=== PATIENT | male | born 1955 | race Caucasian/White ===

== ENCOUNTER 2024-06-13 08:50 | Outpatient (CLI) | payer MEDICARE, MEDICAID, SELFPAY ==
--- NOTE | 2024-06-13 08:54 | CT_ITS ---
WS: [id number] CT NECK WITH CONTRAST HISTORY: NEOPLASM OF UNCERTAIN BEHAVIOR OF SITES OF THE ORAL CAVITY TECHNIQUE: Contiguous 2 mm axial images are performed through the neck with intravenous contrast. Sag ittal and coronal reformats are also submitted. All CT scans at [facility] use at least one o f these dose optimization techniques: automated exposure control; mA and/or kV adjustment per patient size (includes targeted exams where dose is matched to clinical indication); or iterative reconstruc tion. CONTRAST: CONTRAST: Omnipaque 350; 100 mL IV. DLP: 195.34 mGy.cm COMPARISON: None available. Enhancing RIGHT [place] tonsil with enhancing mass and a few foci of air centrally. Mass is centered in the RIGHT [place] tonsil but extends posteriorly into the tongue base. [place] tonsils mass evette sures 2.6 x 2.9 cm and extends over a length of 3.6 cm. Very minimal encroachment into the posterior oral cavity. There is very slight enhancement also within the LEFT [place] tonsil but not masslike. This area can be evaluated by direct visualization. RIGHT cervical chain lymphadenopathy. Multiple abnormal lymph nodes at various stations. Necrotic lym ph node at level 2A measures 3.0 x 1.5 cm. There is an additional level 2B lymph node with loss of th e normal fatty hilum measuring 2.2 cm. Level 5A lymph node is just posterior to the jugular vein on t he RIGHT measuring 1.7 x 1.8 cm. No adenopathy on the lung the LEFT cervical chain. Lung apices are clear. Mild atherosclerosis aortic arch. Mild calcification in the carotid arteries. Visualized paranasal sinuses and mastoid air cells are normal. CT/CT neck w con* [id number] IMPRESSION: 1. Enhancing mass suspicious for neoplasm, likely squamous cell carcinoma cent ered in the RIGHT [place] tonsil with extension into the RIGHT tongue base. Ma ss measures 2.6 x 2.9 cm and extends over a length of 3.6 cm. 2. There is additional very slight enhancement in the LEFT [place] tonsil. Th is can be further evaluated by direct visualization also. No identifiable mass. 3. Large RIGHT cervical chain lymphadenopathy. Multiple enlarged neoplastic ly mph nodes identified at level 2 and level 5.
[2024-06-13 09:21] LABS: Blood Urea Nitrogen 6 mg/dL (8-23); Glomerular Filtration Rate 112.1 mL/min (90-130)
[2024-06-13] MEDS: iohexol 350 mg/mL 500 mL Btl (per mL) IV (09:32)
== END 2024-06-13 08:51 | disposition home or self-care (01) ==
LOC: RAD 08:53
PROVIDERS: Radiology Diagnostic Radiology; Visit Provider Specialist
DX: D37.09 Neoplasm of uncertain behavior of other specified sites of the oral cavity (principal); L04.0 Acute lymphadenitis of face, head and neck
CPT/HCPCS: 70491; 82565; 84520

== ENCOUNTER 2024-07-05 12:17 | Outpatient (CLI) | payer MEDICARE, MEDICAID, SELFPAY ==
--- NOTE | 2024-07-05 | PETR_ITS ---
PROCEDURE INFORMATION: Exam: PET/CT Skull Base to Mid-thigh Exam date and time: 07/05/2024 1:42 PM Age: 69 years old Clinical indication: Condition or disease; Primary cancer: Malignant neoplasm of tongue; Initial oncological staging assessment; Prior surgery; Surgery date: 6+ months; Surgery type: Oral for infection on RT side LABS AND CLINICAL REPORTS: Glucose: 89 mg/dl Treatment strategy for malignancy (PET staging): Initial Staging (PI) TECHNIQUE: Imaging protocol: Following at least four-hour fasting and following the injection of radiopharmaceutical, low dose CT images were obtained. Then, PET images were obtained. Attenuation corrected images were constructed using the CT scan. Fused images of PET and CT were reviewed. The standardized uptake values (SUV) reported below are maximum values within a region of interest, expressed in gm/ml. Exam includes orbital meatal line to mid-thigh. Radiopharmaceutical: 11.53 mCi F-18 FDG (Fluorodeoxyglucose), IV. Time of imaging post radiopharmaceutical administration: 48 minutes Injection site: Left antecubital COMPARISON: CT neck w con* [id number] 06/13/2024 9:21 AM FINDINGS: Brain: Visualized brain has normal physiologic uptake. Pharynx: Although difficult to discretely measure on CT given noncontrast exam, asymmetric right oropharyngeal soft tissue thickening with avid FDG uptake showing SUV max of 16.9 corresponds to more discretely visualized mass on comparison neck CT. No abnormal left palatine tonsil FDG uptake. Larynx: No abnormal uptake. Lungs, pleura and trachea: No abnormal uptake. Heart: Normal physiologic uptake. Coronary arteries: Aguw-on-zstiineb coronary artery calcification. Mediastinal space: No abnormal uptake. Liver: No abnormal uptake. Gallbladder and biliary ducts: No abnormal uptake. Prior cholecystectomy. Pancreas: No abnormal uptake. Spleen: No abnormal uptake. Adrenal glands: No abnormal uptake. Non FDG avid hypodense 1.7 cm long left adrenal nodule compatible with adenoma. Kidneys and ureters: Normal physiologic uptake. Stomach and bowel: No abnormal uptake. Vasculature: No abnormal uptake. Heavy systemic atherosclerotic calcification without aortic aneurysm. Lymph nodes: Redemonstrated enlarged right level 2 and 5 cervical lymph nodes are FDG avid. Index level 2 node measures 1.7 cm in the short axis on axial image 356 of series 202 and shows SUV max of 15.3. Adjacent necrotic level 2 lymph node difficult to discretely measure shows SUV max of 15.6. Level 5 lymph node measures 1.6 cm in the short axis on axial image 336 of series 202 and shows SUV max of 22.1. Skeleton: No abnormal uptake in the visualized axial and appendicular skeleton. Mild chronic appearing anterior wedge morphology of the L1 vertebral body. Degenerative changes along the axial skeletal system. Soft tissues: No abnormal uptake in the visualized head, neck, chest, abdomen, pelvis, and extremities. Tiny fat containing umbilical and bilateral inguinal hernias. PET/PET skull to thigh INIT [id number] IMPRESSION: FDG avid right oropharyngeal soft tissue thickening and cervical lymphadenopathy compatible with metastatic malignancy.
== END 2024-07-05 12:18 | disposition home or self-care (01) ==
PROVIDERS: Visit Provider Specialist
DX: C01 Malignant neoplasm of base of tongue (principal); C09.9 Malignant neoplasm of tonsil, unspecified; R93.89 Abnormal findings on diagnostic imaging of other specified body structures; I70.0 Atherosclerosis of aorta; R59.0 Localized enlarged lymph nodes
CPT/HCPCS: 78815; A9552

== ENCOUNTER 2024-08-29 09:49 | Oncology outpatient (recurring) (ONCR) | payer MEDICARE, MEDICAID, SELFPAY ==
--- NOTE | 2024-08-27 12:54 | N.ONRAD NP_ITS ---
Radiation Oncology New Patient Visit Patient: Conrad Montesinos MR#: [id number] : 1955 Age: 69 Sex: Male> Dictated by: Dr. Maria Luisa Miller Date of Service: 08/27/2024 Referring Physician(s) : Dr. Astudillo , dr gonsalez, dr linton Diagnosis: Squamous cell carcinoma of the right tonsil Radiotherapy to date: Summary > No prior radiation therapy. Chief Complaint / History of Present Illness: Patient is a 69-year-old gentleman who says that he had a sore throat for probably 8 to 9 months. Sometime in May he his aunt and his finally got him to go to his primary care physician. She sent him to Dr. Shepard who on June 26, 2024 obtained a biopsy of the mass that protruded from the right tonsillar fossa. This was positive for a poorly differentiated squamous cell carcinoma the mass was at least 3 cm in size and invaded the underlying muscle. There was extensive necrosis and focal perineural invasion . The final stage was T2 N2b, stage Naylor. He had a PET scan which showed 3-4 lymph nodes in the right neck along with the postsurgical changes in the right tonsillar fossa. He is seen today in consultation to discuss combined modality therapy. Current Medications: [aidan apple cider vinegar PO DAILY] Allergies: No Known Allergies Allergy Medical History: Every day smoker, prior substance/drug abuse user, prior alcohol use Surgical History: Tonsillectomy Family History: Noncontributory Social History: Smoking and tobacco/nicotine status: current every day tobacco/nicotine user Second hand smoke exposure: Yes Alcohol intake: former Substance/Drug Use: former Current Complaints / Review of Systems: . Patient still has a mildly sore throat since the surgery Vital Signs: Performed on 08/27/2024 11:34 AM BMI - 27.586 kg/m2 (high), Height - 72 in, Weight - 203.4 lbs, Temperature - 98.3 f, Pulse - 77 /min, Respiration - 16 /min, O2 Sat - 97 %, Pain - 4, Fatigue - 0 and BP - 121/ 73 mm(hg). Physical Exam: General: Patient is in no apparent distress. He is alone today HEENT: Normocephalic atraumatic. Pupils are equal, sclera clear, extraocular's intact. Oral cavity is without thrush or lesions. He is a dentulous. He has postsurgical changes in the right tonsillar fossa with removal of the tonsil. The left tonsil remains. Neck: Supple without palpable adenopathy Lungs: Respiratory rate is regular nonlabored Cardiovascular: Regular rate and rhythm Abdomen: Mildly protuberant and android pattern Extremities: Without edema or lymphedema Neurological: Alert and orient x 3. 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 We talked about the staging. We reviewed the surgery that has had. We discussed the most aggressive treatment we have involves radiation along with chemotherapy. I reviewed with him the simulation process. We discussed the daily treatment regiment. We reviewed the risks and side effects both acute and long-term. Dr. Astudillo is planning on administering cisplatin him once every 3 weeks for 3 cycles. He has put an order through for a port. I discussed at length the pros and cons of a feeding tube. Mr. Valencia refused feeding tube at this point. I reviewed with him how he is going to have to be determined to maintain his weight. I would prefer he did not lose more than 1 to 2 pounds a week. He verbalized understanding of this. At this point he will return for simulation later this week and will be ready to start his treatments next week once he has had his port placed. Plan for a 7-week course of treatment along with cisplatin every 3 weeks. Signed by: 08/27/2024 12:53:51 PM <<Signature on File>> Time spent with [id number] CPT Code: CPT Code:
== END 2024-09-17 23:59 | disposition home or self-care (01) ==
PROVIDERS: Visit Provider Radiology Radiation Oncology
DX: C09.0 Malignant neoplasm of tonsillar fossa (principal); F17.200 Nicotine dependence, unspecified, uncomplicated; Z51.0 Encounter for antineoplastic radiation therapy
CPT/HCPCS: 77290; 77334; 99205

== ENCOUNTER → 2024-09-09 11:12 | Outpatient (BNVA) | payer MEDICARE, MEDICAID, SELFPAY | PROVIDERS: Referring Provider Internal Medicine Medical Oncology; Visit Provider Surgery | DX: C09.9 Malignant neoplasm of tonsil, unspecified (principal); R03.0 Elevated blood-pressure reading, without diagnosis of hypertension | CPT/HCPCS: 99204 ==

== ENCOUNTER 2024-09-13 10:07 | Day surgery (SDC) | payer MEDICARE, MEDICAID, SELFPAY ==
--- NOTE | 2024-09-13 10:14 | XR_ITS ---
WS: [id number] PORTABLE CHEST HISTORY: Postop Mediport placement COMPARISON: None available. Status post LEFT subclavian Port-A-Cath placement. Tip terminates just proximal to the caval atrial j unction. Lungs are hyperinflated. Cardiac size: Normal. Mediastinum/Aorta: Mild atherosclerosis aorta. No osseous abnormality seen. XR/XR chest 1V portable [id number] IMPRESSION: 1. Satisfactory placement LEFT subclavian Port-A-Cath. 2. Hyperinflated lungs with emphysema.
--- NOTE | 2024-09-13 10:14 | SC_ITS ---
WS: [id number] C-arm fluoroscopy of infusion catheter placement, 09/13/2024 Clinical Data: Mediport placement Comparison: None. Findings: Dr. Guzman placed a left infusion port via the left subclavian vein. SC/C-arm FL for CVA [id number] Impression: Left infusion catheter placement.
[2024-09-13 10:24] VITALS: BP 109/65; PULSE 66; RESP 16; TEMP 36.6; O2SAT 99
--- NOTE | 2024-09-13 10:31 | W.PM.OPSUD ---
Surgery/Procedure H&P Update DATE OF PROCEDURE: September 13, 2024 DATE H&P PERFORMED: 09/09/24 H&P UPDATE INFORMATION: I have reviewed H&P completed within last 30 days, I have examined patient prior to procedure and No changes to prior documentation PLANNED PROCEDURE: Operation Date: 09/13/24 12:10 Proposed Procedures p Portacath Placement 33440, C09.9(Not Applicable) - Ghanshyam Guzman DO
[2024-09-13] MEDS: sodium chloride 0.9% 1,000 ML 30 ML IV (10:41)
--- NOTE | 2024-09-13 11:05 | ANES.PREANE2 ---
Pre-Anesthetic Assessment Height/Weight: Height 1.83 m Weight 92.079 kg Temp Pulse Resp BP Pulse Ox O2 Del Method 97.8 F 66 16 109/65 99 Room Air 09/13/24 10:24 09/13/24 10:24 09/13/24 10:24 09/13/24 10:24 09/13/24 10:24 09/13/24 10:25 Preop Diagnosis: Need for IV access Operation Date: 09/13/24 12:10 Proposed Procedures p Portacath Placement 43348, C09.9(Not Applicable) - Ghanshyam Guzman DO Familial anesthetic complications: none Was Beta Kailash taken within 24 hours: N/A Was Clonidine taken within 24 hours: N/A Last intake: Intake Last Liquid Date 09/12/24 Last Liquid Time 22:00 Last Solid Date 09/12/24 Last Solid Time 20:00 Social Tobacco and No alcohol 1.5 PPD pack(s) per day 4 METS Exam alert, oriented x 3, clear to auscultation bilaterally and regular rate & rhythm Airway Submandibular: within normal limits Cervical ROM: within normal limits Mallampati: Class II Dentition: false Comments: Comments: No breathing or swallowing issues History/ROS No significant history except as noted and No significant complaints Pulmonary None reported Tonsillar Cancer CV/HEM None reported None reported Hepatic None reported GI None reported Metabolic None reported Musc/skel None reported Neuropsych None reported Anesthetic Plan ASA status: 2 Anesthesia: MAC Other: Tonsillar surgery June 2024 Risk of > 500 ml blood loss (7ml/kg in children): No Medications/Allergies Home Medications Medication Instructions Recorded Confirmed Last Taken Type No Known Home Medications 09/09/24 09/09/24 Unknown History Allergies Allergy/AdvReac Type Severity Reaction Status Date / Time No Known Allergies Allergy Verified 09/09/24 14:55 Current Medications Generic Name Dose Route Start Last Admin Trade Name Freq PRN Reason Stop Dose Admin Sodium Chloride 1,000 mls @ 30 mls/hr 09/13/24 10:15 09/13/24 10:41 Sodium Chloride 0.9% IV 09/14/24 10:14 30 mls/hr .Q24H LIN Administration PFSH Anesthesia Social History Smoking and tobacco/nicotine status: current every day tobacco/nicotine user Second hand smoke exposure: Yes Alcohol intake: former Substance/Drug Use: former Data Anesthesia Cardiac Studies: No Data to Display
[2024-09-13] MEDS: ceFAZolin 2,000 mg SDV 2000 MG IVP (12:25)
[2024-09-13] MEDS: lidocaine-epi 2% PF 1:200,000 20 mL SDV INJECTION (12:41)
[2024-09-13] MEDS: heparin, porcine 1,000 unit/mL INJ 10 mL 10000 UNIT IRRIGATION (12:42)
--- NOTE | 2024-09-13 12:59 | PM.OP ---
Operative Report Date of procedure: September 13, 2024 Surgeon: Ghanshyam Guzman DO Procedure: Pre-op diagnosis: Squamous cell carcinoma of tonsil Post-op diagnosis: same Procedure done: Mediport placement Intraoperative interpretation of fluoroscopy Implants: PowerPort Specimens removed/disposition: None Surgeon: Ghanshyam Guzman DO Anesthesia: MAC and Local Estimated blood loss (mL): 5 Complications: None apparent Procedure: The patient was taken to the operating room and placed supine on the operating room table. All bony prominences were padded. She was given IV sedation and monitored throughout the case by the anesthesia personnel. SCDs were placed and turned on. The arms were tucked to the side. Patient received Ancef 2 g preoperatively IV. The bilateral chest wall was prepped and draped in usual sterile fashion using chlorhexidine base prep. Sterile drapes were applied. We did procedure pause prior to beginning. An 18 gauge needle was placed in the left subclavian vein. Dark, nonpulsatile blood was aspirated. A guidewire was placed through the needle centrally toward the atrial/vena caval junction. Fluoroscopy visualized good placement. The needle was removed and the guidewire was clipped to the drape with a hemostat. Further local anesthetic was infiltrated in the soft tissues of the left chest wall and a #15 blade was used to make a horizontal skin incision. A subcutaneous Mediport pocket was created using Bovie cautery, dissecting down through the skin and subcutaneous tissues. Meticulous hemostasis was achieved. The Mediport was sutured in position using 3-0 vicryl suture x2 stitches. A #15 blade was used to make a small skin jaren around the guidewire insertion area. The Mediport tubing was tunneled through the subcutaneous tissues up to the needle insertion location. A dilator with a peel-away sheath was placed over the guidewire and placed centrally. After measuring the Mediport tubing was cut to length so that the tip would end at the atrial/vena caval junction. The inner cannula and the guidewire were removed, leaving the dilator sheath in place. The Mediport was flushed. The tip of the catheter was inserted through the peel-away sheath and the peel-away sheath removed in the standard fashion. The Mediport was accessed with a straight Mejia needle and dark, nonpulsatile blood was aspirated and flushed using heparinized saline to hep-lock the Mediport. Final fluoroscopy visualization showed no kink in the catheter and the tip of the Mediport tubing near the atrial/vena caval junction. There is no obvious pneumothorax. Both skin incisions were thoroughly irrigated and suctioned dry. Meticulous hemostasis noted. The dermis was approximated with 3-0 Vicryl in an interrupted fashion. Skin was closed with Dermabond. Patient was awakened from anesthesia and transferred via her cart to the recovery room in stable condition. All needle, sponge, and instrument counts were correct per the operating personnel x2 counts.
[2024-09-13 13:00] VITALS: BP 87/47; PULSE 63; RESP 18; TEMP 36.4; O2SAT 94
[2024-09-13 13:05] VITALS: BP 112/95; PULSE 67; RESP 18; O2SAT 94
[2024-09-13 13:10] VITALS: BP 102/61; PULSE 61; RESP 12; O2SAT 95
[2024-09-13 13:15] VITALS: BP 123/65; PULSE 66; RESP 19; O2SAT 95
[2024-09-13 13:24] VITALS: BP 100/64; PULSE 70; RESP 18; O2SAT 94
--- NOTE | 2024-09-13 14:05 | ANE.PACU2 ---
Inpatient post-anesthesia follow up: Airway intact: Yes Vital signs: Temperature 97.6 F Pulse Rate 70 Respiratory Rate 18 Blood Pressure 100/64 Pulse Oximetry 94 Oxygen Delivery Me thod Room Air Oxygen Flow Rate Fraction of Inspir ed Oxygen Hydration adequate: Yes Nausea and vomiting: No Pain level: 1 Mental status: Baseline
== END 2024-09-13 14:05 | disposition home or self-care (01) ==
PROVIDERS: PCP Nurse Practitioner Family; Visit Provider Surgery
PROC: (CPT 36561; principal; 2024-09-13 12:00)
DX: C09.9 Malignant neoplasm of tonsil, unspecified (principal); F17.210 Nicotine dependence, cigarettes, uncomplicated
CPT/HCPCS: 36561; 71045; 76000; 77001; C1788; J0690; J1644; J2704; J3010; J7030

== ENCOUNTER → 2024-09-30 13:19 | Outpatient (BNVA) | payer MEDICARE, MEDICAID, SELFPAY | PROVIDERS: PCP Nurse Practitioner Family; Visit Provider Surgery | DX: C09.9 Malignant neoplasm of tonsil, unspecified (principal); Z95.828 Presence of other vascular implants and grafts | CPT/HCPCS: 99214 ==

== ENCOUNTER 2024-10-18 08:27 | Oncology outpatient (recurring) (ONCR) | payer MEDICARE, MEDICAID, SELFPAY ==
[2024-10-10 08:19] LABS: Basophils # 0.1 10^3/uL (0.0-0.1); Basophils % 0.8 %; Eosinophils # 0.2 10^3/uL (0.0-0.8); Eosinophils % 3.3 %; Hematocrit 46.6 % (37-53); Lymphocytes # 1.3 10^3/uL (0.8-4.8); Lymphocytes % 22.3 %; Mean Corpuscular HGB Conc 33.3 g/dL (30-55); Mean Corpuscular Hemoglobin 31.9 pg (27-33); Mean Corpuscular Volume 95.9 fl (82-101); Mean Platelet Volume 11.4 fL (7.4-10.4); Monocytes # 0.8 10^3/uL (0.2-0.9); Monocytes % 13.8 %; Neutrophils # 3.58 10^3/uL (1.8-7.7); Neutrophils % 59.5 %; Nucleated Red Blood Cells % 0 %; Platelet Count 183 10^3/cmm (157-399); Red Blood Count 4.86 10^6/uL (3.85-5.65); Red Cell Distribution Width 13.8 % (12.1-15.1); White Blood Count 6.02 10^3/uL (3.29-11.43)
[2024-10-10 08:43] LABS: Alanine Aminotransferase 14 U/L (0-41); Albumin Level 3.9 g/dL (3.5-5.2); Alkaline Phosphatase 71 U/L (40-130); Anion Gap 15.2 (5-19); Aspartate Amino Transferase 15 U/L (0-40); Blood Urea Nitrogen 15 mg/dL (8-23); Carbon Dioxide 27 mmol/L (22-29); Chloride 100 mmol/L (98-107); Creatinine Clr Calc Pharmacy 102.4255; Globulin 2.7 g/dL (1.3-4.6); Glucose 108 mg/dL (65-115); Osmolality Calculated 287 mOsm/kg (285-295); Potassium 4.2 mmol/L (3.5-5.1); Sodium 138 mmol/L (136-145); Total Bilirubin 0.4 mg/dL (0.15-1.2); Total Protein 6.6 g/dL (6.6-8.7)
[2024-10-10] MEDS: sodium chlor 0.9% + KCl 20 mEq 20 MEQ/1,000 ML BAG 500 MEQ IV (10:47)
[2024-10-10] MEDS: magnesium sulfate premix 2 GM/50 ML PIGGYBACK IV (10:48)
[2024-10-10] MEDS: sodium chloride 0.9% 250 ML 75 ML IV (11:53)
[2024-10-10] MEDS: aprepitant 130 mg/18 ml SDV IVP (11:55)
[2024-10-10] MEDS: palonosetron 0.25 mg/5 mL SDV IVP (11:59)
[2024-10-10] MEDS: dexamethasone 4 mg/mL INJ 5 mL 12 MG IVP (12:02)
[2024-10-10] MEDS: famotidine 20 mg/2 mL INJ IVP (12:04)
[2024-10-10] MEDS: acetaminophen 325 mg Tablet 650 MG PO (12:05)
[2024-10-10] MEDS: OLANZapine 5 mg TABLET PO (12:06)
[2024-10-10] MEDS: diphenhydrAMINE 50 mg/mL SDV 1mL 25 MG IVP (12:08)
[2024-10-10] MEDS: [UNRECOGNIZED DRUG - REMARK] 357.5 MG IV (12:51)
[2024-10-10] MEDS: FUROsemide 10 mg/mL SDV 2mL 20 MG IVP (14:05)
[2024-10-10] MEDS: potassium chloride 20 MEQ in sodium chloride 0.9% 500 ML 500 MEQ IV (14:08)
[2024-10-10] MEDS: sodium chloride 0.9% 500 ML 999 ML IV (14:13)
[2024-10-10 15:55] VITALS: BP 142/78; PULSE 84; RESP 18; TEMP 36.6; O2SAT 98
[2024-10-11] MEDS: sodium chloride 0.9% 1,000 ML 999 ML IV (08:48)
[2024-10-11 09:06] LABS: Basophils % 0.1 %; Hematocrit 46.8 % (37-53); Lymphocytes # 0.5 10^3/uL (0.8-4.8); Lymphocytes % 3.9 %; Mean Corpuscular HGB Conc 32.9 g/dL (30-55); Mean Corpuscular Volume 97.3 fl (82-101); Mean Platelet Volume 11.7 fL (7.4-10.4); Monocytes # 1.4 10^3/uL (0.2-0.9); Monocytes % 10.9 %; Neutrophils # 10.55 10^3/uL (1.8-7.7); Neutrophils % 84.7 %; Nucleated Red Blood Cells % 0 %; Platelet Count 203 10^3/cmm (157-399); Red Blood Count 4.81 10^6/uL (3.85-5.65); White Blood Count 12.46 10^3/uL (3.29-11.43)
[2024-10-11 09:20] LABS: Alanine Aminotransferase 140 U/L (0-41); Albumin Level 3.9 g/dL (3.5-5.2); Alkaline Phosphatase 73 U/L (40-130); Aspartate Amino Transferase 91 U/L (0-40); Blood Urea Nitrogen 23 mg/dL (8-23); Calcium 8.6 mg/dL (8.5-10.5); Carbon Dioxide 28 mmol/L (22-29); Chloride 105 mmol/L (98-107); Creatinine Clr Calc Pharmacy 102.4255; Globulin 2.8 g/dL (1.3-4.6); Glucose 133 mg/dL (65-115); Magnesium 2.4 mg/dL (1.7-2.3); Osmolality Calculated 300 mOsm/kg (285-295); Sodium 142 mmol/L (136-145); Total Bilirubin 0.5 mg/dL (0.15-1.2); Total Protein 6.7 g/dL (6.6-8.7)
[2024-10-11 09:21] LABS: Anion Gap 13.1 (5-19); Potassium 4.1 mmol/L (3.5-5.1)
[2024-10-11 11:04] VITALS: BP 135/75; PULSE 58; RESP 18; TEMP 36.7; O2SAT 100
[2024-10-14] MEDS: sodium chloride 0.9% 1,000 ML 500 ML IV (10:42)
[2024-10-14 13:05] VITALS: BP 131/70; PULSE 53; RESP 17; TEMP 36.1; O2SAT 100
--- NOTE | 2024-10-15 14:46 | ONCRAD TMN_ITS ---
Radiation Oncology Weekly Treatment Management Patient: Conrad Montesinos MR#: [id number] : 1955 Attending Physician: Dr. Maria Luisa Miller Date of Service: 10/15/2024 Fractions: 4 out of 35 Referring Physician(s) : Diagnosis: C09.9 - Malignant neoplasm of tonsil, unspecified, Diagnosed 08/28/2024 (Active) C77.0 - Secondary and unspecified malignant neoplasm of lymph nodes of head, face and neck, Diagnosed 08/28/2024 (Active) Radiotherapy to date: Course: R tonsil/necks, Treatment Site: R Tonsil/neck, Ref. ID: [id number], Energy: 6XDose/Fx (cGy): 200, #Fx: 35, Dose Correction (cGy): 0, Total Dose Delivered (cGy): 800, Start Date: 10/10/2024, Elapsed Days: 5 Reason for visit: The patient is being seen today as part of their regularly scheduled weekly on treatment visits to assess for acute toxicities from radiotherapy. Review of Systems: Patient denies any problems today. He had side effects after his round of chemotherapy. Vital Signs: Performed on 10/15/2024 2:29 PM BMI - 26.094 kg/m2 (high), Height - 72 in, Weight - 192.4 lbs, Temperature - 97.9 f, Pulse - 73 /min, Respiration - 17 /min, O2 Sat - 98 %, Pain - 0, Fatigue - 0 and BP - 95/ 63 mm(hg)(/low). Physical Exam: No changes on exam. His skin is without changes Imaging: Radiation therapy imaging related to accurate target localization (i.e. KV, MV and CBCT) was reviewed. Appropriate changes, if any, were made to ensure treatment accuracy. Plan: Will continue with his treatments as planned. He gets his next round of chemotherapy on October 31 Signed by: Dr. Maria Luisa Miller 10/15/2024 2:44:17 PM
[2024-10-17 11:54] LABS: Basophils # 0.1 10^3/uL (0.0-0.1); Basophils % 1.1 %; Eosinophils % 0.7 %; Hematocrit 46.8 % (37-53); Lymphocytes # 1.1 10^3/uL (0.8-4.8); Lymphocytes % 20.2 %; Mean Corpuscular HGB Conc 34.2 g/dL (30-55); Mean Corpuscular Hemoglobin 32.4 pg (27-33); Mean Corpuscular Volume 94.7 fl (82-101); Mean Platelet Volume 11.5 fL (7.4-10.4); Monocytes # 0.8 10^3/uL (0.2-0.9); Monocytes % 14.3 %; Neutrophils # 3.45 10^3/uL (1.8-7.7); Neutrophils % 63.5 %; Nucleated Red Blood Cells % 0 %; Platelet Count 153 10^3/cmm (157-399); Red Blood Count 4.94 10^6/uL (3.85-5.65); Red Cell Distribution Width 13.2 % (12.1-15.1); White Blood Count 5.44 10^3/uL (3.29-11.43)
[2024-10-17 12:06] LABS: Alanine Aminotransferase 40 U/L (0-41); Alkaline Phosphatase 79 U/L (40-130); Anion Gap 12.9 (5-19); Aspartate Amino Transferase 22 U/L (0-40); Blood Urea Nitrogen 29 mg/dL (8-23); Carbon Dioxide 31 mmol/L (22-29); Chloride 96 mmol/L (98-107); Creatinine Clr Calc Pharmacy 91.0449; Globulin 2.7 g/dL (1.3-4.6); Glomerular Filtration Rate 83.9 mL/min (90-130); Glucose 115 mg/dL (65-115); Osmolality Calculated 289 mOsm/kg (285-295); Potassium 3.9 mmol/L (3.5-5.1); Sodium 136 mmol/L (136-145); Total Bilirubin 0.8 mg/dL (0.15-1.2); Total Protein 6.7 g/dL (6.6-8.7)
[2024-10-17] MEDS: sodium chloride 0.9% 1,000 ML 550 ML IV (13:45)
[2024-10-17 15:52] VITALS: BP 103/59; PULSE 65; RESP 16; TEMP 36.9; O2SAT 98
== END 2024-10-18 23:59 | disposition home or self-care (01) ==
PROVIDERS: Nurse Practitioner Family; PCP Nurse Practitioner Family; Visit Provider Radiology Radiation Oncology
DX: Z51.0 Encounter for antineoplastic radiation therapy (principal); C09.0 Malignant neoplasm of tonsillar fossa; C77.0 Secondary and unspecified malignant neoplasm of lymph nodes of head, face and neck
CPT/HCPCS: 77336; 77386; 80053; 83735; 85025; 96360; 96361; 96365; 96366; 96367; 96375; 96413; 99024; 99213; 99215; J0185; J1100; J1200; J1940; J2469; J3475; J3480; J3490; J7030; J7040; J7050; J9060

== ENCOUNTER 2024-11-15 08:27 | Oncology outpatient (recurring) (ONCR) | payer MEDICARE, MEDICAID, SELFPAY ==
--- NOTE | 2024-10-22 15:04 | ONCRAD TMN_ITS ---
Radiation Oncology Weekly Treatment Management Patient: Jaguar Alves MR#: [id number] : 1955> Attending Physician: Dr. Maria Luisa Miller Date of Service: 10/22/2024 Fractions: 9 out of 35 Referring Physician(s) : Diagnosis: C09.9 - Malignant neoplasm of tonsil, unspecified, Diagnosed 08/28/2024 (Active) C77.0 - Secondary and unspecified malignant neoplasm of lymph nodes of head, face and neck, Diagnosed 08/28/2024 (Active) Radiotherapy to date: Course: R tonsil/necks, Treatment Site: R Tonsil/neck, Ref. ID: [id number], Energy: 6X, Dose/Fx (cGy): 200, #Fx: , Dose Correction (cGy): 0, Total Dose Delivered (cGy): 1,800, Start Date: 10/10/2024, Elapsed Days: 12 Reason for visit: The patient is being seen today as part of their regularly scheduled weekly on treatment visits to assess for acute toxicities from radiotherapy. Review of Systems: Patient has noticed a small area on the inside of his right cheek that is gotten a little sore Vital Signs: Performed on 10/22/2024 2:19 PM BMI - 26.42 kg/m2 (high), Height - 72 in, Weight - 194.8 lbs, Temperature - 97.5 f, Pulse - 64 /min, Respiration - 18 /min, O2 Sat - 97 %, Pain - 0, Fatigue - 0 and BP - 111/ 65 mm(hg). Physical Exam: On exam he has a small right area measures approximately 3 to 4 mm across. Imaging: Radiation therapy imaging related to accurate target localization (i.e. KV, MV and CBCT) was reviewed. Appropriate changes, if any, were made to ensure treatment accuracy. Plan: We talked about using salt water rinses. Have also recommended that he fruit picker some Anusol to try on the small area. If he has worse symptoms we can always use the Magic mix. Signed by: Dr. Maria Luisa Miller 10/22/2024 3:03:14 PM
[2024-10-23 11:20] LABS: Basophils % 0.9 %; Eosinophils # 0.1 10^3/uL (0.0-0.8); Eosinophils % 1.3 %; Hematocrit 44.6 % (37-53); Lymphocytes # 0.8 10^3/uL (0.8-4.8); Lymphocytes % 17.2 %; Mean Corpuscular HGB Conc 33.2 g/dL (30-55); Mean Corpuscular Hemoglobin 32.5 pg (27-33); Mean Platelet Volume 10.8 fL (7.4-10.4); Monocytes # 0.5 10^3/uL (0.2-0.9); Monocytes % 11.9 %; Neutrophils # 3.06 10^3/uL (1.8-7.7); Neutrophils % 68.5 %; Nucleated Red Blood Cells % 0 %; Platelet Count 143 10^3/cmm (157-399); Red Blood Count 4.55 10^6/uL (3.85-5.65); Red Cell Distribution Width 13.5 % (12.1-15.1); White Blood Count 4.47 10^3/uL (3.29-11.43)
[2024-10-23 11:39] LABS: Albumin Level 3.9 g/dL (3.5-5.2); Alkaline Phosphatase 75 U/L (40-130); Anion Gap 11.4 (5-19); Aspartate Amino Transferase 22 U/L (0-40); Blood Urea Nitrogen 19 mg/dL (8-23); Calcium 8.9 mg/dL (8.5-10.5); Carbon Dioxide 31 mmol/L (22-29); Chloride 102 mmol/L (98-107); Creatinine Clr Calc Pharmacy 102.1985; Globulin 2.5 g/dL (1.3-4.6); Glomerular Filtration Rate 96.1 mL/min (90-130); Glucose 112 mg/dL (65-115); Osmolality Calculated 293 mOsm/kg (285-295); Potassium 4.4 mmol/L (3.5-5.1); Sodium 140 mmol/L (136-145); Total Bilirubin 0.6 mg/dL (0.15-1.2); Total Protein 6.4 g/dL (6.6-8.7)
[2024-10-23 11:49] LABS: Alanine Aminotransferase 25 U/L (0-41)
--- NOTE | 2024-11-12 14:37 | ONCRAD TMN_ITS ---
Radiation Oncology Weekly Treatment Management Patient: Jaguar Alves MR#: [id number] : 1955> Attending Physician: Jesus Scott Date of Service: 11/12/2024 Referring Physician(s) : Diagnosis: C09.9 - Malignant neoplasm of tonsil, unspecified, Diagnosed 08/28/2024 (Active) C77.0 - Secondary and unspecified malignant neoplasm of lymph nodes of head, face and neck, Diagnosed 08/28/2024 (Active) Radiotherapy to date: Course: R tonsil/necks, Treatment Site: R Tonsil/neck, Ref. ID: [id number], Energy: 6X, Dose/Fx (cGy): 200, #Fx: 17 / 35, Dose Correction (cGy): 0, Total Dose Delivered (cGy): 3,400, Start Date: 10/10/2024, Elapsed Days: 33 Reason for visit: The patient is being seen today as part of their regularly scheduled weekly on treatment visits to assess for acute toxicities from radiotherapy. Patient by records is lost 22 pounds since his consult. However he is eating well and the mask fits great. Discussed high caloric foods etc. Review of Systems: As above Vital Signs: Performed on 11/12/2024 1:37 PM BMI - 24.63 kg/m2 (high), Height - 72 in, Weight - 181.6 lbs, Temperature - 97.2 f, Pulse - 68 /min, Respiration - 16 /min, O2 Sat - 98 %, Pain - 0, Fatigue - 0 and BP - 94/ 58 mm(hg)(/low). Physical Exam: Alert and oriented and answers questions appropriately. Skin intact no skin breakdown Imaging: Radiation therapy imaging related to accurate target localization (i.e. KV, MV and CBCT) was reviewed. Appropriate changes, if any, were made to ensure treatment accuracy. Plan: Continue XRT Patient has significant problems getting here due to car being in the shop and no money to get it completely fixed. Signed by: Jesus Scott 11/12/2024 2:35:34 PM
== END 2024-11-15 23:59 | disposition home or self-care (01) ==
PROVIDERS: Nurse Practitioner Family; PCP Nurse Practitioner Family; Visit Provider Radiology Radiation Oncology
DX: Z51.0 Encounter for antineoplastic radiation therapy (principal); C09.9 Malignant neoplasm of tonsil, unspecified
CPT/HCPCS: 36415; 77336; 77386; 80053; 85025; 99024; 99213

== ENCOUNTER 2024-12-04 08:00 | Oncology outpatient (recurring) (ONCR) | payer MEDICARE, MEDICAID, SELFPAY ==
--- NOTE | 2024-11-19 14:55 | ONCRAD TMN_ITS ---
Radiation Oncology Weekly Treatment Management Patient: Conrad Montesinos MR#: [id number] : 1955 Attending Physician: Jesus Scott Date of Service: 11/19/2024 Referring Physician(s) : Diagnosis: C09.9 - Malignant neoplasm of tonsil, unspecified, Diagnosed 08/28/2024 (Active) C77.0 - Secondary and unspecified malignant neoplasm of lymph nodes of head, face and neck, Diagnosed 08/28/2024 (Active) Radiotherapy to date: Course: R tonsil/necks, Treatment Site: R Tonsil/neck, Ref. ID: [id number], Energy: 6X, Dose/Fx (cGy): 200, #Fx: / 35, Dose Correction (cGy): 0, Total Dose Delivered (cGy): 4,400, Start Date: 10/10/2024, Elapsed Days: 40 Reason for visit: The patient is being seen today as part of their regularly scheduled weekly on treatment visits to assess for acute toxicities from radiotherapy. Review of Systems: No voice complaints. Maintaining weight. Vital Signs: Performed on 11/19/2024 1:56 PM BMI - 24.847 kg/m2 (high), Height - 72 in, Weight - 183.2 lbs, Temperature - 96.5 f, Pulse - 62 /min, Respiration - 18 /min, O2 Sat - 96 %, Pain - 0, Fatigue - 0 and BP - 114/ 76 mm(hg). Physical Exam: Alert and oriented x 3. Skin intact. No mucositis noted. Imaging: Radiation therapy imaging related to accurate target localization (i.e. KV, MV and CBCT) was reviewed. Appropriate changes, if any, were made to ensure treatment accuracy. Plan: Continue XRT. Signed by: Jesus Scott 11/19/2024 2:54:25 PM
--- NOTE | 2024-11-26 15:20 | ONCRAD TMN_ITS ---
Radiation Oncology Weekly Treatment Management Patient: Conrad Montesinos MR#: [id number] : 1955 Attending Physician: Dr. 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 ID: [id number], Energy: 6X, Dose/Fx (cGy): 200, #Fx: 35, Dose Correction (cGy): 0, Total Dose Delivered (cGy): 5,400, Start Date: 10/10/2024, Elapsed Days: 47 Reason for visit: The patient is being seen today as part of their regularly scheduled weekly on treatment visits to assess for acute toxicities from radiotherapy. Review of Systems: Patient is doing fairly well in terms of maintaining his weight. He is able to still eat and drink what his fixes him every night Vital Signs: Performed on 11/26/2024 2:23 PM BMI - 24.413 kg/m2 (high), Height - 72 in, Weight - 180 lbs, Temperature - 98.4 f, Pulse - 65 /min, Respiration - 16 /min, O2 Sat - 95 % (low), Pain - 1, Fatigue - 0 and BP - 97/ 61 mm(hg)(/low). Physical Exam: His skin is hyperpigmented and dry Imaging: Radiation therapy imaging related to accurate target localization (i.e. KV, MV and CBCT) was reviewed. Appropriate changes, if any, were made to ensure treatment accuracy. Plan: Will continue with his treatments as planned. He will get additional chemotherapy tomorrow Signed by: Dr. Maria Luisa Miller 11/26/2024 3:19:17 PM
[2024-11-27 08:38] LABS: Basophils # 0.1 10^3/uL (0.0-0.1); Basophils % 0.9 %; Eosinophils # 0.2 10^3/uL (0.0-0.8); Hematocrit 43.4 % (37-53); Lymphocytes # 0.6 10^3/uL (0.8-4.8); Lymphocytes % 10.6 %; Mean Corpuscular HGB Conc 33.9 g/dL (30-55); Mean Corpuscular Hemoglobin 32.6 pg (27-33); Mean Corpuscular Volume 96.2 fl (82-101); Mean Platelet Volume 11.5 fL (7.4-10.4); Monocytes # 0.9 10^3/uL (0.2-0.9); Monocytes % 15.9 %; Neutrophils # 3.86 10^3/uL (1.8-7.7); Neutrophils % 69.2 %; Nucleated Red Blood Cells % 0 %; Platelet Count 188 10^3/cmm (157-399); Red Blood Count 4.51 10^6/uL (3.85-5.65); Red Cell Distribution Width 14.3 % (12.1-15.1); White Blood Count 5.58 10^3/uL (3.29-11.43)
[2024-11-27] MEDS: magnesium sulfate premix 2 GM/50 ML PIGGYBACK IV (08:50)
[2024-11-27] MEDS: sodium chlor 0.9% + KCl 20 mEq 20 MEQ/1,000 ML BAG 500 MEQ IV (08:51)
[2024-11-27 09:10] LABS: Alanine Aminotransferase 14 U/L (0-41); Albumin Level 3.9 g/dL (3.5-5.2); Alkaline Phosphatase 67 U/L (40-130); Anion Gap 14.1 (5-19); Aspartate Amino Transferase 15 U/L (0-40); Blood Urea Nitrogen 15 mg/dL (8-23); Calcium 9.1 mg/dL (8.5-10.5); Carbon Dioxide 28 mmol/L (22-29); Chloride 102 mmol/L (98-107); Creatinine Clr Calc Pharmacy 99.0235; Globulin 3.1 g/dL (1.3-4.6); Glomerular Filtration Rate 112.1 mL/min (90-130); Glucose 106 mg/dL (65-115); Osmolality Calculated 291 mOsm/kg (285-295); Potassium 4.1 mmol/L (3.5-5.1); Sodium 140 mmol/L (136-145); Total Bilirubin 0.7 mg/dL (0.15-1.2)
[2024-11-27] MEDS: acetaminophen 325 mg Tablet 650 MG PO (10:05)
[2024-11-27] MEDS: OLANZapine 5 mg TABLET PO (10:05)
[2024-11-27] MEDS: sodium chloride 0.9% 250 ML 75 ML IV (10:15)
[2024-11-27] MEDS: famotidine 20 mg/2 mL INJ IVP (10:18)
[2024-11-27] MEDS: diphenhydrAMINE 50 mg/mL SDV 1mL 25 MG IVP (10:22)
[2024-11-27] MEDS: aprepitant 130 mg/18 ml SDV IVP (10:25)
[2024-11-27] MEDS: palonosetron 0.25 mg/5 mL SDV IVP (10:31)
[2024-11-27] MEDS: dexamethasone 4 mg/mL INJ 5 mL 12 MG IVP (10:33)
[2024-11-27] MEDS: [UNRECOGNIZED DRUG - REMARK] 352 MG IV (11:05)
[2024-11-27] MEDS: FUROsemide 10 mg/mL SDV 2mL 20 MG IVP (12:51)
[2024-11-27] MEDS: potassium chloride 20 MEQ in sodium chloride 0.9% 500 ML 500 MEQ IV (12:54)
[2024-11-27 14:07] VITALS: BP 110/71; PULSE 60; TEMP 36.1; O2SAT 98
--- NOTE | 2024-12-03 14:46 | ONCRAD TMN_ITS ---
Radiation Oncology Weekly Treatment Management Patient: Jaguar Alves MR#: [id number] : 1955> Attending Physician: Dr. 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 ID: [id number], Energy: 6X, Dose/Fx (cGy): 200, #Fx: 32 / 35, Dose Correction (cGy): 0, Total Dose Delivered (cGy): 6,400, Start Date: 10/10/2024, Elapsed Days: 54 Reason for visit: The patient is being seen today as part of their regularly scheduled weekly on treatment visits to assess for acute toxicities from radiotherapy. Review of Systems: Patient continues to have sore throat. He is trying to get as much water in his he can. Vital Signs: Performed on 12/03/2024 2:20 PM BMI - 23.26 kg/m2 (high), Height - 72 in, Weight - 171.5 lbs, Temperature - 97 f, Pulse - 166 /min (high), Respiration - 18 /min, O2 Sat - 100 %, Pain - 4, Fatigue - 3 and BP - 122/ 85 mm(hg). Physical Exam: On exam his skin is hyperpigmented but he has no areas of moist or dry desquamation Imaging: Radiation therapy imaging related to accurate target localization (i.e. KV, MV and CBCT) was reviewed. Appropriate changes, if any, were made to ensure treatment accuracy. Plan: He did actually lose 9 pounds this week. I talked to him about getting IV fluids for the rest of the week. He currently has transportation issues and was not able to stay today. He will let us know if he can get that done tomorrow. Signed by: Dr. Maria Luisa Miller 12/03/2024 2:45:57 PM
[2024-12-04] MEDS: sodium chloride 0.9% 1,000 ML 999 ML IV (13:09)
== END 2024-12-04 23:59 | disposition home or self-care (01) ==
PROVIDERS: Internal Medicine Medical Oncology; PCP Nurse Practitioner Family; Visit Provider Radiology Radiation Oncology
DX: Z53.9 Procedure and treatment not carried out, unspecified reason; Z51.0 Encounter for antineoplastic radiation therapy; C09.9 Malignant neoplasm of tonsil, unspecified; C77.0 Secondary and unspecified malignant neoplasm of lymph nodes of head, face and neck
CPT/HCPCS: 77336; 77386; 80053; 85025; 96360; 96361; 96367; 96375; 96413; 96415; 99024; 99214; J0185; J1100; J1200; J1940; J2469; J3475; J3480; J3490; J7030; J7040; J7050; J9060; J9999

== ENCOUNTER 2024-12-06 09:05 | Oncology outpatient (recurring) (ONCR) | payer MEDICARE, MEDICAID, SELFPAY ==
[2024-12-05] MEDS: alteplase 1 mg/mL SDV 2 mL 2 MG INTRACATH (13:49)
[2024-12-05] MEDS: sodium chloride 0.9% 1,000 ML 999 ML IV (14:20)
[2024-12-05 15:37] VITALS: BP 124/70; PULSE 65; RESP 17; TEMP 36.3; O2SAT 97
[2024-12-06] MEDS: sodium chloride 0.9% 1,000 ML 999 ML IV (09:43)
--- NOTE | 2024-12-10 09:12 | N.ONRD TS_ITS ---
Radiation Oncology Treatment Summary Patient: Jaguar>Joselyn MR#: [id number] : 1955> Age: 69> Sex: Male Dictated by: Dr. 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 ID: [id number], Energy: 6X, Dose/Fx (cGy): 200, #Fx: 35 / 35, Dose Correction (cGy): 0, Total Dose Delivered (cGy): 7,000, Start Date: 10/10/2024, End Date: 12/06/2024, Elapsed Days: 57 Clinical Summary: The patient tolerated RT well. Patient had the normal toxicity with brisk mucositis and skin reaction. He was able to complete his treatments in a timely fashion. Plan: End of treatment today. Continue on the above medication until the skin reaction resolves. Follow up in one month. Signed by: Dr. Maria Luisa Miller>12/10/2024 9:10:39 AM <<Signature on File>>
== END 2024-12-16 23:59 | disposition home or self-care (01) ==
PROVIDERS: PCP Nurse Practitioner Family; Visit Provider Radiology Radiation Oncology
DX: Z51.0 Encounter for antineoplastic radiation therapy; C09.9 Malignant neoplasm of tonsil, unspecified; C77.0 Secondary and unspecified malignant neoplasm of lymph nodes of head, face and neck; Z79.899 Other long term (current) drug therapy; Z53.9 Procedure and treatment not carried out, unspecified reason
CPT/HCPCS: 77336; 77386; 96360; 99024; J2997; J7030

== ENCOUNTER 2024-12-24 12:01 | Oncology outpatient (recurring) (ONCR) | payer MEDICARE, MEDICAID, SELFPAY ==
[2024-12-24 12:33] LABS: Basophils % 1.1 %; Eosinophils % 1.1 %; Lymphocytes # 0.3 10^3/uL (0.8-4.8); Lymphocytes % 11.9 %; Mean Corpuscular HGB Conc 34.7 g/dL (30-55); Mean Corpuscular Hemoglobin 33.4 pg (27-33); Mean Corpuscular Volume 96.2 fl (82-101); Mean Platelet Volume 10.8 fL (7.4-10.4); Monocytes # 0.6 10^3/uL (0.2-0.9); Monocytes % 20.9 %; Neutrophils # 1.78 10^3/uL (1.8-7.7); Neutrophils % 63.9 %; Nucleated Red Blood Cells % 0 %; Platelet Count 159 10^3/cmm (157-399); Red Blood Count 3.95 10^6/uL (3.85-5.65); Red Cell Distribution Width 14.4 % (12.1-15.1); White Blood Count 2.78 10^3/uL (3.29-11.43)
[2024-12-24 12:44] LABS: Alanine Aminotransferase 17 U/L (0-41); Albumin Level 3.5 g/dL (3.5-5.2); Alkaline Phosphatase 51 U/L (40-130); Anion Gap 13.6 (5-19); Aspartate Amino Transferase 21 U/L (0-40); Blood Urea Nitrogen 19 mg/dL (8-23); Calcium 8.9 mg/dL (8.5-10.5); Carbon Dioxide 32 mmol/L (22-29); Chloride 96 mmol/L (98-107); Creatinine Clr Calc Pharmacy 76.1344; Globulin 2.7 g/dL (1.3-4.6); Glomerular Filtration Rate 74.3 mL/min (90-130); Glucose 101 mg/dL (65-115); Osmolality Calculated 288 mOsm/kg (285-295); Potassium 3.6 mmol/L (3.5-5.1); Sodium 138 mmol/L (136-145); Total Bilirubin 0.6 mg/dL (0.15-1.2); Total Protein 6.2 g/dL (6.6-8.7)
--- NOTE | 2024-12-24 14:48 | ONCRAD EPV_ITS ---
Radiation Oncology Established Patient Visit Patient: Jaguar Martines [id number] : 1955> Age: 69> Sex: Male> Dictated by: Dr. 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 ID: [id number], Energy: 6X, Dose/Fx (cGy): 200, #Fx: 35 / 35, Dose Correction (cGy): 0, Total Dose Delivered (cGy): 7,000, Start Date: 10/10/2024, End Date: 12/06/2024, Elapsed Days: 57 Current History: He has had a very good recovery. Eating well. Swallowing much improved. Active at home. No longer smoking. He will see ENT 01/06/2025. Vital Signs: Performed on 12/24/2024 12:31 PM BMI - 22.107 kg/m2, Height - 72 in, Weight - 163 lbs, Temperature - 98.7 f, Pulse - 65 /min, Respiration - 17 /min, O2 Sat - 99 %, Pain - 3, Fatigue - 0 and BP - 106/ 69 mm(hg). Physical Exam: General: Alert and oriented x 3. No acute distress. .OC normal mucosa. No tonsillar lesions. Bimanual eam of OC clear. Necks have dry oliver scaly skin. No palpable adenopathy. Performance Status: ECOG PS 0-1 Lab: None pending. Pathology: Primary, c09.9 - malignant neoplasm of tonsil, unspecified, Diagnosed 08/28/2024 (active) and Primary, c77.0 - secondary and unspecified malignant neoplasm of lymph nodes of head, face and neck, Diagnosed 08/28/2024 (active) . Imaging: See HPI Impression: ROXANA. Recovering well. FU with ENT as scheduled with Rashaad Gresham 01/06/2025. Med onc FU in the future as well. FU here PRN. Signed by: 12/24/2024 2:47:45 PM <<Signature on File>> Time spent with patient: 20 minutes CPT Code: * CPT Code: *
== END 2025-01-15 23:59 | disposition home or self-care (01) ==
PROVIDERS: Internal Medicine Medical Oncology; PCP Nurse Practitioner Family; Visit Provider Nurse Practitioner Family
DX: C09.9 Malignant neoplasm of tonsil, unspecified (principal); Z87.891 Personal history of nicotine dependence; Z79.899 Other long term (current) drug therapy
CPT/HCPCS: 36591; 80053; 85025; 99024; 99214

== ENCOUNTER 2025-01-21 13:04 | Oncology outpatient (recurring) (ONCR) | payer OTHER, MEDICAID, SELFPAY ==
[2025-01-21 13:25] LABS: Basophils % 0.3 %; Eosinophils % 0.2 %; Hematocrit 34.4 % (37-53); Lymphocytes # 0.6 10^3/uL (0.8-4.8); Lymphocytes % 6.1 %; Mean Corpuscular HGB Conc 33.4 g/dL (30-55); Mean Corpuscular Hemoglobin 33.3 pg (27-33); Mean Corpuscular Volume 99.7 fl (82-101); Mean Platelet Volume 11.4 fL (7.4-10.4); Monocytes # 1.2 10^3/uL (0.2-0.9); Monocytes % 13.2 %; Neutrophils # 7.19 10^3/uL (1.8-7.7); Neutrophils % 79.4 %; Nucleated Red Blood Cells % 0 %; Platelet Count 166 10^3/cmm (157-399); Red Blood Count 3.45 10^6/uL (3.85-5.65); White Blood Count 9.06 10^3/uL (3.29-11.43)
[2025-01-21 13:42] LABS: Alanine Aminotransferase 10 U/L (0-41); Albumin Level 3.6 g/dL (3.5-5.2); Alkaline Phosphatase 62 U/L (40-130); Aspartate Amino Transferase 12 U/L (0-40); Blood Urea Nitrogen 23 mg/dL (8-23); Calcium 8.7 mg/dL (8.5-10.5); Carbon Dioxide 26 mmol/L (22-29); Chloride 99 mmol/L (98-107); Creatinine Clr Calc Pharmacy 86.2062; Globulin 2.9 g/dL (1.3-4.6); Glomerular Filtration Rate 83.9 mL/min (90-130); Glucose 120 mg/dL (65-115); Osmolality Calculated 285 mOsm/kg (285-295); Sodium 135 mmol/L (136-145); Total Protein 6.5 g/dL (6.6-8.7)
== END 2025-02-15 23:59 | disposition home or self-care (01) ==
PROVIDERS: PCP Nurse Practitioner Family; Visit Provider Nurse Practitioner Family
DX: C09.9 Malignant neoplasm of tonsil, unspecified (principal); Z87.891 Personal history of nicotine dependence; Z79.899 Other long term (current) drug therapy; Z92.3 Personal history of irradiation; Z92.21 Personal history of antineoplastic chemotherapy; Z95.828 Presence of other vascular implants and grafts
CPT/HCPCS: 36591; 80053; 85025; 99214

== ENCOUNTER 2025-02-04 13:10 | Outpatient (CLI) | payer OTHER, MEDICAID, SELFPAY ==
--- NOTE | 2025-02-04 13:13 | CT_ITS ---
WS: [id number] CT NECK TECHNIQUE: Contrast-enhanced CT of the neck with coronal and sagittal reformatted images. CLINICAL INFORMATION: MALIGNANT NEOPLASM OF TONSILLAR FOSSA COMPARISON: CT 06/13/2024 and PET/CT 07/05/2024 DLP: 154.[address] scans at [facility] use at least one of these dose optimization techniques: automated exposure control; mA and/or kV adjustment per patient size (includes targeted exams where dose is matched to clinical indication); or iterative reconstruction. FINDINGS: Previously described RIGHT tonsillar and oropharyngeal neoplasm has been treated in the interval and has essentially resolved on this study. No significant residual masslike soft tissue enhancement in the RIGHT tonsil or RIGHT tongue base. No evidence of supraglottic or glottic mass. Normal subglottic airway. Previously described FDG avid RIGHT cervical lymphadenopathy also appears resolved. No significant residual lymphadenopathy today. Dense carotid bulb calcification. Paranasal sinuses and mastoid air cells are well aerated. Moderate spondylitic changes cervical spine. Straightening of the normal cervical lordosis. Normal thyroid gland. Aortic arch calcification. Normal parotid glands. Normal submandibular glands. CT/CT neck w con* [id number] IMPRESSION: 1. Findings compatible with interval response to therapy with resolution of th e RIGHT tonsillar and oropharyngeal mass. 2. No residual significant cervical lymphadenopathy.
== END 2025-02-04 13:11 | disposition home or self-care (01) ==
PROVIDERS: PCP Nurse Practitioner Family; Visit Provider Specialist
DX: C09.0 Malignant neoplasm of tonsillar fossa (principal); I65.23 Occlusion and stenosis of bilateral carotid arteries; M47.892 Other spondylosis, cervical region; R93.7 Abnormal findings on diagnostic imaging of other parts of musculoskeletal system; I70.0 Atherosclerosis of aorta
CPT/HCPCS: 70491

== ENCOUNTER 2025-02-28 08:30 | Oncology outpatient (recurring) (ONCR) | payer OTHER, MEDICAID, SELFPAY ==
[2025-02-19 12:44] LABS: Basophils % 1.3 %; Eosinophils # 0.1 10^3/uL (0.0-0.8); Eosinophils % 4.5 %; Hematocrit 33.8 % (37-53); Lymphocytes # 0.6 10^3/uL (0.8-4.8); Lymphocytes % 19.4 %; Mean Corpuscular HGB Conc 33.7 g/dL (30-55); Mean Corpuscular Hemoglobin 34.9 pg (27-33); Mean Corpuscular Volume 103.4 fl (82-101); Mean Platelet Volume 9.9 fL (7.4-10.4); Monocytes # 0.5 10^3/uL (0.2-0.9); Monocytes % 16.1 %; Neutrophils # 1.79 10^3/uL (1.8-7.7); Neutrophils % 57.7 %; Nucleated Red Blood Cells % 0 %; Platelet Count 188 10^3/cmm (157-399); Red Blood Count 3.27 10^6/uL (3.85-5.65); Red Cell Distribution Width 14.4 % (12.1-15.1)
[2025-02-19 13:08] LABS: Alanine Aminotransferase 10 U/L (0-41); Albumin Level 3.6 g/dL (3.5-5.2); Alkaline Phosphatase 59 U/L (40-130); Aspartate Amino Transferase 18 U/L (0-40); Blood Urea Nitrogen 20 mg/dL (8-23); Calcium 8.6 mg/dL (8.5-10.5); Carbon Dioxide 27 mmol/L (22-29); Chloride 103 mmol/L (98-107); Globulin 2.7 g/dL (1.3-4.6); Glomerular Filtration Rate 66.4 mL/min (90-130); Glucose 126 mg/dL (65-115); Osmolality Calculated 292 mOsm/kg (285-295); Sodium 139 mmol/L (136-145); Total Bilirubin 0.3 mg/dL (0.15-1.2); Total Protein 6.3 g/dL (6.6-8.7)
--- NOTE | 2025-02-28 08:30 | PETR_ITS ---
PROCEDURE INFORMATION: Exam: PET/CT Skull Base to Mid-thigh Exam date and time: 02/28/2025 9:22 AM Age: 70 years old Clinical indication: Condition or disease; Primary cancer: Tonsillar squamous cell carcinoma; Follow-up oncological assessment; Additional info: Tonsillar squamous cell carcinoma, Dr. Astudillo would like this done on 02/28/25 LABS AND CLINICAL REPORTS: Glucose: 135 mg/dl Treatment strategy for malignancy (PET staging): Restaging (PS) TECHNIQUE: Imaging protocol: Following at least four-hour fasting and following the injection of radiopharmaceutical, low dose CT images were obtained. Then, PET images were obtained. Attenuation corrected images were constructed using the CT scan. Fused images of PET and CT were reviewed. The standardized uptake values (SUV) reported below are maximum values within a region of interest, expressed in gm/ml. Exam includes orbital meatal line to mid-thigh. SUV normalization method: BodyWeight Radiopharmaceutical: 11.54 mCi F-18 FDG (Fluorodeoxyglucose), IV. Time of imaging post radiopharmaceutical administration: 47 minutes Injection site: RAC COMPARISON: 1. PT PET skull to thigh INIT [id number] 07/05/2024 1:[address] neck w con* [id number] 02/04/2025 1:33 PM FINDINGS: Tubes, catheters and devices: Left-sided Port-A-Cath terminates in the mid SVC. Brain: Visualized brain has normal physiologic uptake. Pharynx: No abnormal uptake. Larynx: No abnormal uptake. Lungs, pleura and trachea: No abnormal uptake. Heart: Normal physiologic uptake. Mediastinal space: No abnormal uptake. Esophagus: There is some mild FDG uptake involving the upper esophagus with SUV max 3.6. There is also mild mural thickening of the upper esophagus. Liver: No abnormal uptake. Gallbladder and biliary ducts: Cholecystectomy. Pancreas: No abnormal uptake. Spleen: No abnormal uptake. Adrenal glands: There appears to be a 1.8 cm left adrenal adenoma without increased FDG uptake. Kidneys and ureters: Normal physiologic uptake. Stomach and bowel: No abnormal uptake. Reproductive: Mild prostatomegaly. Vasculature: Heavy burden of atherosclerotic plaque in the abdominal aorta and branch vessels. No aneurysm. Lymph nodes: No abnormal uptake. No lymphadenopathy in the head, neck, chest, abdomen, pelvis, and extremities. Skeleton: No abnormal uptake in the visualized axial and appendicular skeleton. Soft tissues: No abnormal uptake in the visualized head, neck, chest, abdomen, pelvis, and extremities. METRICS: Mediastinal blood pool: SUV max is 2.4 Liver uptake: SUV max is 2.8 PET/PET skull to thigh SUBS [id number] IMPRESSION: 1. No definite FDG avid neoplastic disease. 2. Mild FDG uptake associated with some mural thickening in upper esophagus may be inflammatory.
== END 2025-03-17 23:59 | disposition home or self-care (01) ==
LOC: RAD 08:35 → ONCMED 03-03 09:31
PROVIDERS: PCP Nurse Practitioner Family; Visit Provider Internal Medicine Medical Oncology
DX: C09.9 Malignant neoplasm of tonsil, unspecified; R93.89 Abnormal findings on diagnostic imaging of other specified body structures; Z90.49 Acquired absence of other specified parts of digestive tract; E27.8 Other specified disorders of adrenal gland; N40.0 Benign prostatic hyperplasia without lower urinary tract symptoms; I70.0 Atherosclerosis of aorta; I70.90 Unspecified atherosclerosis; Z53.9 Procedure and treatment not carried out, unspecified reason
CPT/HCPCS: 78815; 80053; 85025; 99214; A9552

== ENCOUNTER 2025-03-18 12:34 | Oncology outpatient (recurring) (ONCR) | payer OTHER, MEDICAID, SELFPAY ==
[2025-03-18 13:05] LABS: Hematocrit 34.2 % (37-53); Hemoglobin 11.50 g/dL (11.27-16.99); Mean Corpuscular HGB Conc 33.6 g/dL (30-55); Mean Corpuscular Hemoglobin 34.3 pg (27-33); Mean Corpuscular Volume 102.1 fl (82-101); Nucleated Red Blood Cells % 0 %; Platelet Count 162 10^3/cmm (157-399); Red Blood Count 3.35 10^6/uL (3.85-5.65); White Blood Count 2.91 10^3/uL (3.29-11.43)
[2025-03-18 13:48] LABS: Alanine Aminotransferase 13 U/L (0-41); Albumin Level 3.9 g/dL (3.5-5.2); Alkaline Phosphatase 73 U/L (40-130); Anion Gap 15.6 (5-19); Aspartate Amino Transferase 17 U/L (0-40); Blood Urea Nitrogen 24 mg/dL (8-23); Calcium 8.6 mg/dL (8.5-10.5); Carbon Dioxide 23 mmol/L (22-29); Chloride 103 mmol/L (98-107); Creatinine Clr Calc Pharmacy 75.0770; Globulin 2.5 g/dL (1.3-4.6); Glucose 96 mg/dL (65-115); Osmolality Calculated 288 mOsm/kg (285-295); Potassium 4.6 mmol/L (3.5-5.1); Sodium 137 mmol/L (136-145); Total Protein 6.4 g/dL (6.6-8.7); Vitamin B12 227 pg/mL (232-1245)
== END 2025-04-17 23:59 | disposition home or self-care (01) ==
PROVIDERS: Nurse Practitioner Family; PCP Nurse Practitioner Family; Visit Provider Internal Medicine Medical Oncology
DX: Z08 Encounter for follow-up examination after completed treatment for malignant neoplasm (principal); Z85.89 Personal history of malignant neoplasm of other organs and systems; Z95.828 Presence of other vascular implants and grafts; Z87.891 Personal history of nicotine dependence; Z92.3 Personal history of irradiation; Z92.21 Personal history of antineoplastic chemotherapy
CPT/HCPCS: 36591; 80053; 82607; 82746; 85025; 96523; 99214

== ENCOUNTER → 2025-03-19 14:39 | Outpatient (BNVA) | payer OTHER, MEDICAID, SELFPAY | PROVIDERS: PCP Nurse Practitioner Family; Visit Provider Surgery | DX: Z95.828 Presence of other vascular implants and grafts (principal) | CPT/HCPCS: 99214 ==

== ENCOUNTER 2025-03-31 05:33 | Day surgery (SDC) | payer OTHER, MEDICAID, SELFPAY ==
[2025-03-31 06:04] VITALS: BP 109/68; PULSE 61; RESP 18; TEMP 36.6; O2SAT 100; BMI 22.1
--- NOTE | 2025-03-31 06:30 | ANES.PREANE2 ---
Pre-Anesthetic Assessment Height/Weight: Height 6 ft Weight 163 lb Temp Pulse Resp BP Pulse Ox O2 Del Method 97.9 F 61 18 109/68 100 Room Air 03/31/25 06:04 03/31/25 06:04 03/31/25 06:04 03/31/25 06:04 03/31/25 06:04 03/31/25 06:07 Preop Diagnosis: Requesting port removal Operation Date: 03/31/25 07:00 Proposed Procedures p Portacath Removal 10822, Z95.828 C09.9(Not Applicable) - Sanford Bullard MD Was Beta Kailash taken within 24 hours: N/A Was Clonidine taken within 24 hours: N/A Last intake: Intake Last Liquid Date 03/30/25 Last Liquid Time 21:00 Last Solid Date 03/30/25 Last Solid Time 18:00 Social No alcohol and No tobacco Quit smoking over 6 months ago Exam alert, oriented x 3, clear to auscultation bilaterally and regular rate & rhythm Airway Submandibular: within normal limits Cervical ROM: within normal limits Mallampati: Class III Comments: Comments: Edentulous, right swelling on hard palate. Anesthetic Plan ASA status: 3 Anesthesia: MAC Other: No prior issues with anesthesia NPO since yesterday evening Patient has a history of right tonsillar squamous cell carcinoma. S/p chemotherapy Quit smoking about 6 months ago Denies any trouble swallowing Denies any cardiac issues Labs reviewed from 03/18/2025, neutropenia noted, hemoglobin 11.5. Electrolytes stable Plan for MAC anesthesia with local via surgeon Medications/Allergies Home Medications ?Medication ?Instructions ?Recorded ?Confirmed ?Last Taken ?Type sulfamethoxazole 800 1.5 tab PO BID 03/27/25 03/27/25 03/31/25 03:30 History mg-trimethoprim 160 mg tablet zinc acetate 50 mg (zinc) capsule 50 mg PO DAILY 03/27/25 03/27/25 03/31/25 03:30 History Allergies Allergy/AdvReac Type Severity Reaction Status Date / Time No Known Allergies Allergy Verified 03/19/25 14:43 Current Medications Generic Name Dose Route Start Last Admin Trade Name Freq PRN Reason Stop Dose Admin Sodium Chloride 1,000 mls @ 30 mls/hr 03/31/25 05:45 03/31/25 06:21 Sodium Chloride 0.9% IV 04/01/25 05:44 30 mls/hr .Q24H LIN Administration PFSH Anesthesia Medical History Port-A-Cath in place 09/13/24 Dr Guzman Social History Smoking and tobacco/nicotine status: former use of tobacco/nicotine Second hand smoke exposure: Yes Alcohol intake: former Substance/Drug Use: former
--- NOTE | 2025-03-31 07:01 | W.PM.OPSUD ---
Surgery/Procedure H&P Update DATE OF PROCEDURE: March 31, 2025 DATE H&P PERFORMED: 03/19/25 H&P UPDATE INFORMATION: I have reviewed H&P completed within last 30 days, I have examined patient prior to procedure, No changes to prior documentation, H&P is in [facility] EMR on date indicated and Risks and benefits of the procedure reviewed PREOP DIAGNOSIS: Requesting port removal PLANNED PROCEDURE: Operation Date: 03/31/25 07:00 Proposed Procedures p Portacath Removal [id number], Z95.828 C09.9(Not Applicable) - Sanford Bullard MD
[2025-03-31] MEDS: ceFAZolin 2,000 mg SDV 2000 MG IVP (07:07)
[2025-03-31] MEDS: BUPivacaine 0.25% INJ 10 mL INJECTION (07:16)
[2025-03-31] MEDS: lidocaine-epi 1% 20 mL INJ INJECTION (07:16)
--- NOTE | 2025-03-31 07:34 | PM.OP ---
Operative Report Date of procedure: March 31, 2025 Pre-op diagnosis: History of tonsillar cancer Post-op diagnosis: Same Post-op findings: Port-A-Cath in place, no evidence of infection Procedure done: Excision Port-A-Cath and capsule Specimens removed/disposition: Port-A-Cath and capsule, no pathology Surgeon: Sanford Bullard MD Chairperson Anesthesiology: MARK OR STaff Complications: None Brief History: 70-year-old male who finished therapy for tonsil cancer and presented to my office for Port-A-Cath removal. After discussion of risks and benefits we decided to proceed. Procedure: Patient was brought into the OR, he was placed in a supine position. Monitored anesthesia care was initiated. The left upper chest was prepped and draped in the usual sterile fashion. A timeout was conducted. A 3 cm incision was made overlying the area of the Port-A-Cath through the previous surgical scar. The incision was deepened until the Port-A-Cath was identified, the capsule around the Port-A-Cath was opened and the Port-A-Cath was delivered through the skin. Pressure was held in the subclavian vein and the Port-A-Cath was removed. I then obliterated the tract using a #3-0 Vicryl suture to prevent backbleeding. The capsule was then excised using a combination of blunt dissection and Metzenbaum. Hemostasis was achieved. The wound was closed in layers using #3-0 Vicryl for the subcutaneous tissue #4 Monocryl for the skin. Dermabond was applied and a compressive dressing was placed on top of the Dermabond. At the end of the procedure all counts were correct, the patient tolerated well the procedure and was transferred to the PACU in stable condition.
[2025-03-31 07:48] VITALS: BP 104/61; PULSE 74; RESP 17; TEMP 36.1; O2SAT 98
[2025-03-31 07:52] VITALS: BP 86/57; PULSE 71; RESP 18; TEMP 36.2; O2SAT 98
[2025-03-31 07:54] VITALS: BP 90/53; PULSE 68; RESP 16; TEMP 35.8; O2SAT 99
[2025-03-31 07:59] VITALS: BP 92/50; PULSE 62; RESP 16; TEMP 36.1; O2SAT 99
[2025-03-31 08:15] VITALS: BP 91/55; PULSE 57; RESP 18; TEMP 36.1; O2SAT 99
--- NOTE | 2025-03-31 08:55 | ANE.PACU2 ---
Inpatient post-anesthesia follow up: Airway intact: Yes Vital signs: Temperature 97.0 F Pulse Rate 57 Respiratory Rate 18 Blood Pressure 91/55 Pulse Oximetry 99 Oxygen Delivery Me thod Room Air Oxygen Flow Rate Fraction of Inspir ed Oxygen Hydration adequate: Yes Nausea and vomiting: No Pain level: 1 Mental status: Baseline
== END 2025-03-31 08:55 | disposition home or self-care (01) ==
PROVIDERS: PCP Nurse Practitioner Family; Visit Provider Surgery
PROC: (CPT 36589; principal; 2025-03-31 07:00)
DX: Z45.2 Encounter for adjustment and management of vascular access device (principal); Z85.818 Personal history of malignant neoplasm of other sites of lip, oral cavity, and pharynx; Z87.891 Personal history of nicotine dependence
CPT/HCPCS: 36590; J0690; J2371; J2704; J3010; J3490; J7030; J9999

== ENCOUNTER → 2025-04-15 13:09 | Outpatient (BNVA) | payer OTHER, MEDICAID, SELFPAY | PROVIDERS: PCP Nurse Practitioner Family; Visit Provider Surgery | DX: Z98.890 Other specified postprocedural states (principal) | CPT/HCPCS: 99212 ==

== ENCOUNTER 2025-07-28 12:58 | Oncology outpatient (recurring) (ONCR) | payer MEDICAID, OTHER, SELFPAY ==
[2025-07-28 13:23] LABS: Hematocrit 40.7 % (37-53); Hemoglobin 13.40 g/dL (11.27-16.99); Mean Corpuscular HGB Conc 32.9 g/dL (30-55); Mean Corpuscular Hemoglobin 33.0 pg (27-33); Mean Corpuscular Volume 100.2 fl (82-101); Nucleated Red Blood Cells % 0 %; Platelet Count 141 10^3/cmm (157-399); Red Blood Count 4.06 10^6/uL (3.85-5.65); White Blood Count 3.95 10^3/uL (3.29-11.43)
[2025-07-28 13:46] LABS: Alanine Aminotransferase 18 U/L (0-41); Albumin Level 4.3 g/dL (3.5-5.2); Alkaline Phosphatase 66 U/L (40-130); Anion Gap 14.5 (5-19); Aspartate Amino Transferase 19 U/L (0-40); Blood Urea Nitrogen 17 mg/dL (8-23); Calcium 9.1 mg/dL (8.5-10.5); Carbon Dioxide 27 mmol/L (22-29); Chloride 103 mmol/L (98-107); Globulin 2.4 g/dL (1.3-4.6); Glucose 126 mg/dL (65-115); Osmolality Calculated 293 mOsm/kg (285-295); Potassium 4.5 mmol/L (3.5-5.1); Sodium 140 mmol/L (136-145); Thyroid Stimulating Hormone 1.42 uIU/mL (0.27-4.20); Total Protein 6.7 g/dL (6.6-8.7)
== END 2025-08-17 23:59 | disposition home or self-care (01) ==
PROVIDERS: PCP Nurse Practitioner Family; Visit Provider Internal Medicine Medical Oncology
DX: Z08 Encounter for follow-up examination after completed treatment for malignant neoplasm (principal); Z85.89 Personal history of malignant neoplasm of other organs and systems; F17.210 Nicotine dependence, cigarettes, uncomplicated; Z79.899 Other long term (current) drug therapy; Z92.3 Personal history of irradiation; Z92.21 Personal history of antineoplastic chemotherapy
CPT/HCPCS: 36415; 80053; 84443; 85025; 99214

== ENCOUNTER 2025-08-28 12:08 | Oncology outpatient (recurring) (ONCR) | payer OTHER, MEDICAID, SELFPAY ==
--- NOTE | 2025-08-28 12:30 | CT_ITS ---
WS: [id number] CT chest abdpel w/*[id number] REASON FOR EXAM: Right tonsillar squamous cell carcinoma IV CONTRAST ADMINISTERED: 100 mL of Omnipaque 350. TECHNIQUE: Multiple axial images of the chest post intravenous contrast in early portal venous phase. Multiple axial images of the abdomen postcontrast intravenous contrast in the later portal venous phase with oral contrast. Coronal and sagittal reconstructions of the chest, abdomen, and pelvis. COMPARISON EXAMINATION PET/CT scan 02/28/2025. TOTAL EXAM DLP: 799.[address] scans at [facility] use at least one of these dose optimization techniques: automated exposure control; mA and/or kV adjustment per patient size (includes targeted exams where dose is matched to clinical indication); or iterative reconstruction. FINDINGS: CHEST No mediastinal or hilar mass or adenopathy. Coronary artery calcifications. Mild calcified plaque in the aortic arch and descending thoracic aorta. No lung mass or lung nodule. No pleural abnormality. Degenerative spondylosis in the lower thoracic spine. ABDOMEN 2 small areas hypoattenuation in the left lobe of the liver, simple bile cysts. Mild dilatation of the central intrahepatic radicles, hepatic and common bile duct status post cholecystectomy. Mild fatty infiltration of the pancreas. Normal spleen. Normal adrenal glands. Normal nephrographic phase of both kidneys. No contrast opacifies the renal collecting systems ureters or urinary bladder. No abdominal mass, adenopathy, focal fluid collection, or free fluid. The oral contrast did not reach the level of the colon. There are mild to moderately dilated proximal small bowel loops with more distal small bowel loops demonstrating mural thickening. The distal jejunum and ileum appear normal. No abnormality of the colon. Old compression deformity of L1. PELVIS No mass, adenopathy, free fluid, or focal fluid collection. Thickening of the bladder wall. No significant abnormality of the bony pelvis. CT/CT chest abdpel w/*[id number] IMPRESSION: No evidence of metastatic neoplasm. Proximal small bowel abnormality of unknown etiology and clinical significance. Possibly enteritis.
[2025-08-28] MEDS: iohexol 350 mg/mL 500 mL Btl (per mL) PO (13:32)
[2025-08-28] MEDS: iohexol 350 mg/mL 500 mL Btl (per mL) IV (13:32)
== END 2025-09-17 23:59 | disposition home or self-care (01) ==
PROVIDERS: PCP Nurse Practitioner Family; Visit Provider Internal Medicine Medical Oncology
DX: Z08 Encounter for follow-up examination after completed treatment for malignant neoplasm (principal); Z85.89 Personal history of malignant neoplasm of other organs and systems; F17.210 Nicotine dependence, cigarettes, uncomplicated; Z79.899 Other long term (current) drug therapy; Z92.3 Personal history of irradiation; Z92.21 Personal history of antineoplastic chemotherapy; Z95.828 Presence of other vascular implants and grafts; Z87.891 Personal history of nicotine dependence; C09.9 Malignant neoplasm of tonsil, unspecified
CPT/HCPCS: 71260; 74177